=== PATIENT | male | born 1980 | race Hispanic/Latino ===

== ENCOUNTER 2020-03-09 22:07 | Emergency (ER) | payer OTHER ==
[2020-03-09] MEDS ORDERED: ONDANSETRON HCL 4 MG/2 ML VIAL ONE (23:00)
[2020-03-09] MEDS ORDERED: KETOROLAC TROMETHAMINE 30MG/ML ONE (23:00)
[2020-03-09] MEDS ORDERED: SODIUM CHLORIDE 0.9% 1000ML 1,000 ML IV ONE (23:01)
[2020-03-09] MEDS ORDERED: MORPHINE SULFATE 2 MG/ML 1ML SYG ONE (23:01)
[2020-03-09] MEDS ORDERED: MORPHINE SULFATE 4 MG/1ML SYG ONE (23:01)
[2020-03-09 23:21] LABS: BASOPHILS % (AUTO) 0.2 % (0.0-5.0); EOSINOPHILS % (AUTO) 0.1 % (0.0-8.0); HEMATOCRIT 46.4 % (42-54); LYMPHOCYTES % (AUTO) 11.7 % (21.0-51.0); MEAN CORPUSCULAR HEMOGLOBIN 28.4 pg (27.0-33.0); MEAN CORPUSCULAR HGB CONC 34.1 g/dL (32.0-36.0); MEAN CORPUSCULAR VOLUME 83.3 fL (79-99); NEUTROPHILS % (AUTO) 79.6 % (40.0-77.0); PLATELET COUNT (AUTO) 268 K/uL (130-400); RED BLOOD CELL COUNT(AUTO) 5.57 MIL/uL (4.50-6.20); RED CELL DISTRIBUTION WIDTH 13.2 % (11.0-15.5); WHITE BLOOD COUNT (AUTO) 15.3 K/uL (4.8-10.8)
[2020-03-09 23:30] LABS: APPEARANCE,URINE CLEAR (CLEAR); BILIRUBIN,URINE Negative (NEGATIVE); COLOR,URINE Yellow (YELLOW); GLUCOSE, URINE (UA) Negative (NEGATIVE); KETONES,URINE Negative (NEGATIVE); LEUKOCYTE ESTERASE ,URINE Trace (NEGATIVE); NITRATE,URINE Negative (NEGATIVE); OCCULT BLOOD,URINE Small (NEGATIVE); PROTEIN,URINE Negative (NEGATIVE); UROBILINOGEN,URINE 0.2 mg/dL (0.2-1.0)
[2020-03-09 23:41] LABS: CREATININE 1.6 mg/dL (0.5-1.5)
[2020-03-09 23:46] LABS: ALBUMIN 4.1 g/dL (3.5-5.0); BILIRUBIN,TOTAL 1.6 mg/dL (0.2-1.0); TOTAL PROTEIN, SERUM 8.1 g/dL (6.0-8.3)
[2020-03-09 23:48] LABS: POTASSIUM 3.8 mmol/L (3.5-5.1)
[2020-03-09 23:52] LABS: BACTERIA,URINE Rare /HPF (None Seen); MUCUS,URINE Rare LPF (None Seen); SQUAMOUS EPITHELIAL CELL,UR 0-2 /HPF (0-2); URIC ACID CRYSTALS,URINE Many /LPF (None Seen)
== END 2020-03-10 00:28 | disposition home or self-care (01) ==
LOC: EDH 22:07
DX: N39.0 Urinary tract infection, site not specified (principal); N20.1 Calculus of ureter; Z88.0 Allergy status to penicillin; Z90.49 Acquired absence of other specified parts of digestive tract
CPT/HCPCS: 36415; 74176; 80053; 81001; 85025; 96374; 96375; 99284; J1885; J2270; J2405; J7030

== ENCOUNTER 2021-06-19 04:06 | Emergency (ER) | payer OTHER ==
[~2021-06-19] VITALS: Ht 177.8 cm; Wt 104.3 kg
[2021-06-19 05:00] LABS: BASOPHILS % (AUTO) 0.5 % (0.0-5.0); EOSINOPHILS % (AUTO) 2.4 % (0.0-8.0); HEMATOCRIT 45.8 % (42-54); LYMPHOCYTES % (AUTO) 36.6 % (21.0-51.0); MEAN CORPUSCULAR HEMOGLOBIN 28.4 pg (27.0-33.0); MEAN CORPUSCULAR HGB CONC 33.4 g/dL (32.0-36.0); MONOCYTES % (AUTO) 10.7 % (3.0-13.0); NEUTROPHILS % (AUTO) 49.5 % (40.0-77.0); PLATELET COUNT (AUTO) 249 K/uL (130-400); RED BLOOD CELL COUNT(AUTO) 5.39 MIL/uL (4.50-6.20); RED CELL DISTRIBUTION WIDTH 13.3 % (11.0-15.5); WHITE BLOOD COUNT (AUTO) 6.3 K/uL (4.8-10.8)
[2021-06-19] MEDS ORDERED: LIDOCAINE 5% TOPICAL PATCH TP ONE (05:00)
[2021-06-19] MEDS ORDERED: KETOROLAC 60 MG VIAL (30MG/ML) IM ONE (05:00)
[2021-06-19] MEDS ORDERED: ORPHENADRINE CITRATE 30 MG/ML ML IM ONE (05:00)
[2021-06-19 05:25] LABS: ALBUMIN 3.8 g/dL (3.5-5.0); BILIRUBIN,TOTAL 0.6 mg/dL (0.2-1.0); CREATININE 1.1 mg/dL (0.5-1.5); POTASSIUM 4.2 mmol/L (3.5-5.1); TOTAL PROTEIN, SERUM 7.1 g/dL (6.0-8.3)
[2021-06-19] MEDS ORDERED: CYCL-309 PO (05:51)
[2021-06-19] MEDS ORDERED: IBUP-2070 PO (05:51)
[2021-06-19 06:24] VITALS: BP 142/76
== END 2021-06-19 06:22 | disposition home or self-care (01) ==
LOC: EDH 04:06
DX: M62.838 Other muscle spasm (principal); M54.2 Cervicalgia; M25.512 Pain in left shoulder; Z88.0 Allergy status to penicillin
CPT/HCPCS: 36415; 80053; 82550; 84484; 85025; 93005; 96372 ×2; 99284; J1885; J2360